=== PATIENT | female | born 1935 | race Caucasian/White ===

== ENCOUNTER 2022-01-11 08:52 | Outpatient (REF) | payer MEDICARE, SELFPAY ==
[2022-01-11 10:26] LABS: Hematocrit 40.2 % (37.0-47.0); Hemoglobin 13.5 g/dl (12.0-16.0); Mean Corpuscular HGB Conc 33.6 g/dl (31.0-35.0); Mean Corpuscular Hemoglobin 29.3 pg (27.0-33.0); Mean Corpuscular Volume 87.2 fL (80.0-98.0); Mean Platelet Volume 11.8 fL (9.4-12.3); Platelet Count 239 X10*3/uL (160-400); Red Blood Count 4.61 X10*6/uL (4.20-5.50); Red Cell Distribution Width 12.4 % (11.0-16.0); White Blood Count 7.2 X10*3/uL (4.8-10.8)
== END 2022-01-11 08:53 | disposition home or self-care (01) ==
LOC: HO.LAB 08:52
PROVIDERS: PCP Physician Assistant; Visit Provider Physician Assistant
DX: Z13.89 Encounter for screening for other disorder (principal)
CPT/HCPCS: 36415; 85027

== ENCOUNTER 2022-11-25 07:53 | Outpatient (REF) | payer MEDICARE, SELFPAY ==
[2022-11-25 08:22] LABS: Hematocrit 40.2 % (37.0-47.0); Hemoglobin 13.6 g/dl (12.0-16.0); Mean Corpuscular HGB Conc 33.8 g/dl (31.0-35.0); Mean Corpuscular Hemoglobin 29.3 pg (27.0-33.0); Mean Corpuscular Volume 86.6 fL (80.0-98.0); Mean Platelet Volume 11.4 fL (9.4-12.3); Platelet Count 267 X10*3/uL (160-400); Red Blood Count 4.64 X10*6/uL (4.20-5.50); Red Cell Distribution Width 12.6 % (11.0-16.0); White Blood Count 7.3 X10*3/uL (4.8-10.8)
[2022-11-25 08:55] LABS: Alanine Aminotransferase 23 U/L (0-31); Albumin Level 4.3 g/dL (3.5-5.0); Alkaline Phosphatase 107 U/L (39-117); Anion Gap 13 (12-20); Aspartate Amino Transferase 18 U/L (5-31); Bilirubin Total 0.6 mg/dL (0.0-1.0); Blood Urea Nitrogen 18 mg/dL (9-16); Calcium 9.3 mg/dL (8.4-10.2); Carbon Dioxide 27 mmol/L (22-29); Chloride 106 mmol/L (96-108); Cholesterol 132 mg/dL; Estimated Glomerular Filt Rate > 60; Glucose Fasting 131 mg/dL (60-99); HDL Cholesterol 41 mg/dL; LDL Cholesterol Calculated 71 mg/dl; Potassium 4.2 mmol/L (3.3-5.1); Sodium 142 mmol/L (135-145); Total Protein 7.3 g/dL (6.5-8.0); Triglycerides 104 mg/dL
[2022-11-25 09:14] LABS: TSH reflex Free T4 0.41 uIU/mL (0.32-4.0)
[2022-11-25 10:49] LABS: Creatinine Urine 64.07 mg/dL; Microalbum/Creatinine Ratio Ur 59.3 ug/mg cr
== END 2022-11-25 07:54 | disposition home or self-care (01) ==
LOC: HO.LAB 07:53
PROVIDERS: PCP Physician Assistant; Visit Provider Physician Assistant
DX: I10 Essential (primary) hypertension (principal)
CPT/HCPCS: 36415; 80053; 80061; 82043; 84443; 85027

== ENCOUNTER 2022-12-20 13:09 | Outpatient (REF) | payer MEDICARE, SELFPAY ==
[2022-12-20 13:59] LABS: Estimated Average Glucose 120 mg/dL; Hemoglobin A1c % 5.8 %
== END 2022-12-20 13:10 | disposition home or self-care (01) ==
LOC: HO.LAB 13:09
PROVIDERS: PCP Physician Assistant; Visit Provider Physician Assistant
DX: R73.01 Impaired fasting glucose (principal)
CPT/HCPCS: 36415; 83036

== ENCOUNTER 2023-03-15 08:26 | Emergency (ER) | payer MEDICARE, SELFPAY ==
--- NOTE | ~2023-03-15 | XR_ITS ---
EXAMINATION: XR CHEST CLINICAL INFORMATION: Chest pain. COMPARISON: 05/05/2019 chest radiographs. TECHNIQUE: 2 views of the chest were obtained. FINDINGS: No significant abnormality is noted involving the heart, lungs, mediastinum, bony thorax or soft tissues. XR/XR chest 2V IMPRESSION: No acute cardiopulmonary process.
[2023-03-15 08:26] VITALS: BP 133/76; PULSE 75; RESP 18; TEMP 36.7; O2SAT 96; BMI 30.1
--- NOTE | 2023-03-15 08:31 | ECG_ITS ---
Test Reason : dizziness Blood Pressure : / mmHG Vent. Rate : 081 BPM Atrial Rate : 081 BPM P-R Int : 134 ms QRS Dur : 072 ms QT Int : 362 ms P-R-T Axes : 010 -19 017 degrees QTc Int : 420 ms Sinus rhythm with Premature atrial complexes Minimal voltage criteria for LVH, may be normal variant ( R in aVL ) Inferior infarct (cited on or before 15-MAR-2023) Anterolateral infarct , age undetermined Abnormal ECG When compared with ECG of 05-MAY-2019 10:01, Premature atrial complexes are now Present Anterior infarct is now Present Anterolateral infarct is now Present Referred By: Generic ED Physician Electronically Signed By:AYSHA HUMPHRIES
[2023-03-15 09:11] VITALS: BP 130/82; PULSE 83; RESP 16; O2SAT 96
--- NOTE | 2023-03-15 09:31 | PC.NURSE ---
pt a&ox3, vss, nsr on the spa manager/esthetician. pt's triage states she is here for dizziness and chest pain but upon speaking w/ pt - main concern is poison tera that resides all over her body. 20gIV placed in the left AC w/o complications. provide bedside speaking with pt. call serna placed within reach. will continue to monitor.
--- NOTE | 2023-03-15 10:07 | PC.NURSE ---
labs drawn and sent to lab.
[2023-03-15 10:08] VITALS: BP 136/112; PULSE 68; RESP 14; TEMP 36.7; O2SAT 96
--- NOTE | 2023-03-15 10:09 | ED_ITS ---
HPI - General Adult General Chief complaint: Dizziness Stated complaint: Not Feeling Well Time Seen by Provider: 03/15/23 09:05 Source: patient Mode of arrival: ambulatory Limitations: no limitations History of Present Illness HPI narrative: 87 yo female with hx of HTN who states since January she has had this pruritic rash and it appears that she has been on prednisone a couple of times with 2 week courses since the start of January she states they are not helping. She is coming in frustrated today and notes she also had some chest pain that was brief at rest and tight last night with mild dyspnea - no symptoms now. Her biggest complaint at this moment is her rash. She has not seen her PCP or water plant operator - patient spends time in her garden states she is not sure if it is poison oak. complaint: rash, chest pain Onset (ago): month(s) (1 month of rash and chest pain last night) Location: chest, left, right, upper extremity and lower extremity Radiation: non-radiation Severity: moderate Quality: other (chest was tight rash is pruritic) Pain Consistency: now resolved Relieving factors: none Exacerbating factors: none Associated symptoms: denies other symptoms Treatments prior to arrival: none Related Data Previous Rx's Medication Instructions Recorded aspirin 81 mg tablet,delayed 81 mg PO DAILY 90 days #90 tabs 12/28/21 release (Adult Aspirin Regimen) amlodipine 10 mg-valsartan 160 mg 1 tab PO DAILY 90 days #90 tabs 11/15/22 tablet hydrocortisone 1 % topical cream 1 appl topical BID PRN itching 03/15/23 #28.35 grams Allergies Allergy/AdvReac Type Severity Reaction Status Date / Time No Known Allergies Allergy Verified 11/15/22 13:42 [No Known Allergies*] Review of Systems Review of Systems: Constitutional : No Fever, No Chills ENT/Mouth : No sore throat, No Rhinorrhea Eyes: No Eye Pain, No Swelling, No Redness Cardiovascular : pos Chest Pain, No SOB Respiratory : No Cough, No Sputum Gastrointestinal : No Nausea, No Vomiting, No Diarrhea, No abdominal Pain Genitourinary : No Dysuria, No Hematuria Musculoskeletal : No joint pain, No Myalgias, No Joint Swelling Skin : No Skin Lesions, positive skin rash Neuro : No Weakness, No Numbness, No Headache Psych : No Anxiety, No Depression Heme/Lymph: No Bruising, No Bleeding,No Lymphadenopathy Endocrine : No Polyuria, No Polydipsia All other systems reviewed and are negative [facility] Past Medical History Attestation statement: The following information was validated with the patient. Medical History Hypotension Surgical History History of throat surgery S/P ear surgery Social History Social History Housing: House Alcohol intake: never Patient Tobacco Use Status: Never used Tobacco Tobacco use type: Cigarette Smoked in Last 30 Days: No e-Cigarette/Vaping Use: Never Used Second Hand Smoke Exposure: No Use of substances other than those prescribed or required for medical reasons: No Advance Directives: No Advance Directives Information Provided: Yes service: No Current occupational status: retired Cognitive needs: No Hearing needs: Yes Vision needs: Yes Physical Exam ED Vital Signs: Vital Signs - 24 hr 03/15/23 08:26 03/15/23 09:11 03/15/23 10:08 Temperature 98.1 F 98.0 F Pulse Rate 75 83 68 Respiratory Rate 18 16 14 Blood Pressure 133/76 130/82 136/112 H Pulse Oximetry 96 96 96 Oxygen Delivery Method Room Air Room Air Room Air 03/15/23 11:17 Temperature Pulse Rate 81 Respiratory Rate 16 Blood Pressure 132/69 Pulse Oximetry 98 Oxygen Delivery Method Room Air BMI result Body Mass Index 30.1 Appearance: Alert. Oriented X3. No acute distress. Eyes: Pupils equal, round and reactive to light. ENT: Pharynx normal. Neck: Normal inspection. Neck supple. CVS: Normal heart rate and rhythm. Pulses normal. Respiratory: No respiratory distress. Breath sounds normal. Abdomen: Soft and non-tender. Skin: Skin warm and dry. Normal skin color. there is a mild rash on arms and abdomen along upper thighs as well that is red raised and appears like a dermatitis - no warmth or edema. Extremities: No lower extremity edema. Neuro: Oriented X 3. No motor deficit. No sensory deficit. Course Course Course Narrative: trop is flat at this time. Reevaluation(s) Reevaluation #1: I spoke to the daughter the patient goes on the steroids but then isn't really compliant and the family cannot get rid of all of the poisonous parsnip and the patient will not stay out of the garden. currently the patient is taking atarax and completed her last steroid course. will not stay out of the garden and is not listening to her daughter. Medications Administered Discontinued Medications Generic Name Dose Route Start Last Admin Trade Name Edson PRN Reason Stop Dose Admin Hydroxyzine HCl 25 mg 03/15/23 11:26 03/15/23 11:33 Hydroxyzine Hcl 25 Mg Tablet PO 03/15/23 11:27 25 mg ONCE ONE Administration Methylprednisolone Sodium Succinate 125 mg 03/15/23 11:34 03/15/23 11:45 Methylprednisolone Sod Succ 125 Mg/2 Ml Vial IVPUSH 03/15/23 11:35 125 mg ONCE ONE Administration Medical Decision Making Medical Decision Making [facility] Narrative: 87 yo female with hx of HTN here with c/o nonspecific eruption that is pruritic and has done at least 20 days of prednisone without relief but has not seen a water plant operator. at this time she has no signs of cellulitis will obtain basic labs and she also c/o atypical chest pain that was brief at rest last night but it has resolved at this time. She has no signs of DVT no hypoxia it was not pleu ritic will obtain EKG and troponin as well as CXR. given her rash she has almost been on prednisone without relief x 1 month - there is no signs of infection I am not entirely sure if she is re exposing herself as she still goes in her garden I am going to call her daughter once her workup is done. Differential Diagnosis Differential Diagnoses: The differential diagnosis associated with the presentation includes dermatitis, nonspecific eruption, atypical chest pain - no hypoxia no signs of DVT not pleuritic PE seems unlikely Admission/Observation Consideration of admission/observation: Escalation of care including admission/observation considered trop flat without rise and EKG no JOVANI. Lab Data [facility] Lab Attestation statement: I reviewed the patient's lab results. 03/15/23 10:07 03/15/23 10:07 Labs: Lab Results 03/15/23 03/15/23 03/15/23 Range/Units 10:07 10:07 10:07 WBC 11.1 H (4.8-10.8) X10*3/uL RBC 4.97 (4.20-5.50) X10*6/uL Hgb 14.7 (12.0-16.0) g/dl Hct 42.6 (37.0-47.0) % MCV 85.7 (80.0-98.0) fL MCH 29.6 (27.0-33.0) pg MCHC 34.5 (31.0-35.0) g/dl RDW 13.2 (11.0-16.0) % Plt Count 246 (160-400) X10*3/uL MPV 11.0 (9.4-12.3) fL Immature Gran % (Auto) 0.8 H (0.0-0.4) % Neut % (Auto) 65.3 (45-73) % Lymph % (Auto) 20.4 (20-40) % [place] % (Auto) 7.4 (2-11) % Eos % (Auto) 5.8 H (0-4) % Baso % (Auto) 0.3 (0-2) % Lymph # (Auto) 2.3 (1.2-4.9) X10*3/uL [place] # (Auto) 0.8 (0.1-1.2) X10*3/uL Eos # (Auto) 0.7 H (0.0-0.4) X10*3/uL Baso # (Auto) 0.0 (0.0-0.2) X10*3/uL Abs Immat Gran (auto) 0.09 H (0.00-0.03) X10*3/uL Absolute Neuts (auto) 7.3 (2.0-8.3) x10*3/uL Absolute Nucleated RBC 0.000 (0.0-0.012) X10*3/uL Nucleated RBC % (auto) 0.0 (0.0-0.2) /100WBC Sodium 142 (135-145) mmol/L Potassium 3.5 (3.3-5.1) mmol/L Chloride 105 (96-108) mmol/L Carbon Dioxide 27 (22-29) mmol/L Anion Gap 14 (12-20) BUN 23 H (9-16) mg/dL Creatinine 1.20 (0.5-1.4) mg/dL Estim Creat Clear Calc 31.8 Estimated GFR 43 Random Glucose 195 H (60-115) mg/dL Calcium 8.8 (8.4-10.2) mg/dL Magnesium 1.7 (1.6-2.6) mg/dL Total Bilirubin 0.6 (0.0-1.0) mg/dL Direct Bilirubin 0.2 (0.0-0.5) mg/dL AST 13 (5-31) U/L ALT 25 (0-31) U/L Alkaline Phosphatase 62 (39-117) U/L Troponin I High Sens 25.9 H (<3.5-17.0) ng/L B-Natriuretic Peptide (<100) pg/mL Total Protein 6.1 L (6.5-8.0) g/dL Albumin 3.7 (3.5-5.0) g/dL COVID-19 (TANNA) (Negative) COVID-19 Clin Com 03/15/23 03/15/23 03/15/23 Range/Units 10:07 10:07 10:59 WBC (4.8-10.8) X10*3/uL RBC (4.20-5.50) X10*6/uL Hgb (12.0-16.0) g/dl Hct (37.0-47.0) % MCV (80.0-98.0) fL MCH (27.0-33.0) pg MCHC (31.0-35.0) g/dl RDW (11.0-16.0) % Plt Count (160-400) X10*3/uL MPV (9.4-12.3) fL Immature Gran % (Auto) (0.0-0.4) % Neut % (Auto) (45-73) % Lymph % (Auto) (20-40) % [place] % (Auto) (2-11) % Eos % (Auto) (0-4) % Baso % (Auto) (0-2) % Lymph # (Auto) (1.2-4.9) X10*3/uL [place] # (Auto) (0.1-1.2) X10*3/uL Eos # (Auto) (0.0-0.4) X10*3/uL Baso # (Auto) (0.0-0.2) X10*3/uL Abs Immat Gran (auto) (0.00-0.03) X10*3/uL Absolute Neuts (auto) (2.0-8.3) x10*3/uL Absolute Nucleated RBC (0.0-0.012) X10*3/uL Nucleated RBC % (auto) (0.0-0.2) /100WBC Sodium (135-145) mmol/L Potassium (3.3-5.1) mmol/L Chloride (96-108) mmol/L Carbon Dioxide (22-29) mmol/L Anion Gap (12-20) BUN (9-16) mg/dL Creatinine (0.5-1.4) mg/dL Estim Creat Clear Calc Estimated GFR Random Glucose (60-115) mg/dL Calcium (8.4-10.2) mg/dL Magnesium (1.6-2.6) mg/dL Total Bilirubin (0.0-1.0) mg/dL Direct Bilirubin (0.0-0.5) mg/dL AST (5-31) U/L ALT (0-31) U/L Alkaline Phosphatase (39-117) U/L Troponin I High Sens 25.1 H (<3.5-17.0) ng/L B-Natriuretic Peptide 28 (<100) pg/mL Total Protein (6.5-8.0) g/dL Albumin (3.5-5.0) g/dL COVID-19 (TANNA) Negative (Negative) COVID-19 Clin Com See Note Independent Interpretation I performed an independent interpretation of an: EKG and Plain X-Ray Interpretation: Rate: 81 Rhythm: NSR [place]: left Normal P waves. Normal CJ. Normal QRS complex. poor R wave progression ST T wave : no JOVANI, inverted T wave III qTC: normal prior studies: R wave progression is new The study has been interpreted contemporaneously by me. . Radiology Impression Discussion of test interpretation with radiology: I have reviewed the radiolo gist's reading. Independent Historian Clinical information obtained from an independent historian. History obtained from or confirmed by: Other (daughter) External Record Review External record reviewed: Outpatient record Prescription Management I considered prescription management with: Other Discharge Plan Discharge Clinical Impression: Contact dermatitis, Atypical chest pain Patient Disposition: Home, Self-Care Instructions: Chest Pain (ED), Contact Dermatitis (ED) Additional Instructions: you were given a shot of steroids in the ED. you have to avoid the sun and the plants please stop going into yard until the yard is cleaned and treated. you can take atarax for itching. I am going to start you on a cream as well. your EKG showed likely an old heart attack in the past please call the data support analyst for an outpatient stress test and talk to your doctor about this - call in the nex tweek. return for fevers, return of chest pain, dizziness, faitning, increased trouble breathing or any other concerns. Prescriptions: New hydrocortisone 1 % cream 1 appl topical BID PRN (Reason: itching) Qty: 28.35 0RF Rx Instructions: for 2 weeks No Action aspirin [Adult Aspirin Regimen] 81 mg tablet,delayed release (DR/EC) 81 mg PO DAILY 90 Days Qty: 90 1RF amlodipine-valsartan 10-160 mg tablet 1 tab PO DAILY 90 Days Qty: 90 2RF Referrals: Damion Hoover MD [Physician] - (talk to your doctor about referral for stress test)
--- NOTE | 2023-03-15 10:11 | PC.NURSE ---
x-ray bedside transporting pt.
--- NOTE | 2023-03-15 10:11 | PC.NURSE ---
labs/covid sent, pt to xray.
[2023-03-15 10:23] LABS: MANUAL DIFF FLAG NO
[2023-03-15 10:24] LABS: Basophils Percent Auto 0.3 % (0-2); Eosinophils Absolute Auto 0.7 X10*3/uL (0.0-0.4); Eosinophils Percent Auto 5.8 % (0-4); Hematocrit 42.6 % (37.0-47.0); Hemoglobin 14.7 g/dl (12.0-16.0); Imm Gran Abs Auto 0.09 X10*3/uL (0.00-0.03); Imm Gran Pct Auto 0.8 % (0.0-0.4); Lymphocytes Absolute Auto 2.3 X10*3/uL (1.2-4.9); Lymphocytes Percent Auto 20.4 % (20-40); Mean Corpuscular HGB Conc 34.5 g/dl (31.0-35.0); Mean Corpuscular Hemoglobin 29.6 pg (27.0-33.0); Mean Corpuscular Volume 85.7 fL (80.0-98.0); Monocytes Absolute Auto 0.8 X10*3/uL (0.1-1.2); Monocytes Percent Auto 7.4 % (2-11); Neutrophils Absolute Auto 7.3 x10*3/uL (2.0-8.3); Neutrophils Percent Auto 65.3 % (45-73); Platelet Count 246 X10*3/uL (160-400); Red Blood Count 4.97 X10*6/uL (4.20-5.50); Red Cell Distribution Width 13.2 % (11.0-16.0); White Blood Count 11.1 X10*3/uL (4.8-10.8)
[2023-03-15 10:34] LABS: COVID-19 Test Negative (Negative)
[2023-03-15 10:41] LABS: Alanine Aminotransferase 25 U/L (0-31); Albumin Level 3.7 g/dL (3.5-5.0); Alkaline Phosphatase 62 U/L (39-117); Anion Gap 14 (12-20); Aspartate Amino Transferase 13 U/L (5-31); Bilirubin Direct 0.2 mg/dL (0.0-0.5); Bilirubin Total 0.6 mg/dL (0.0-1.0); Blood Urea Nitrogen 23 mg/dL (9-16); Calcium 8.8 mg/dL (8.4-10.2); Carbon Dioxide 27 mmol/L (22-29); Chloride 105 mmol/L (96-108); Creatinine Clr Calc Pharmacy 31.8; Estimated Glomerular Filt Rate 43; Glucose Random 195 mg/dL (60-115); Magnesium 1.7 mg/dL (1.6-2.6); Potassium 3.5 mmol/L (3.3-5.1); Sodium 142 mmol/L (135-145); Total Protein 6.1 g/dL (6.5-8.0)
[2023-03-15 10:44] LABS: B Type Natriuretic Peptide 28 pg/mL (<100)
[2023-03-15 10:49] LABS: Troponin-I High Sensitivity 25.9 ng/L (<3.5-17.0)
--- NOTE | 2023-03-15 11:00 | PC.NURSE ---
[employer] drawing labs and sending over.
[2023-03-15 11:17] VITALS: BP 132/69; PULSE 81; RESP 16; O2SAT 98
--- NOTE | 2023-03-15 11:18 | PC.NURSE ---
pt a&ox3, vss, nsr on the gambling monitor - occasional PVC's present on monitor. pt resting comfortably in no apparent distress. pt verbalizing 0/10 pain but extreme itchiness from poison tera. call serna placed within reach.
[2023-03-15 11:24] LABS: Troponin-I High Sensitivity 25.1 ng/L (<3.5-17.0)
[2023-03-15] MEDS: hydrOXYzine HCL 25 MG TABLET PO (11:33)
--- NOTE | 2023-03-15 11:34 | PC.NURSE ---
medication administered per provider order. pharmacy called and notified that pt need cortizone cream - will apply topically when able.
--- NOTE | 2023-03-15 11:36 | PC.NURSE ---
resting in bed. VSS. md ordering cream for pt report of poison tera to hands/arms- skin is otherwise intact with +CSM and good pallor. denies dizziness/chest pain/SOB/abd. pain. calm, cooperative. no respiratory distress. passed swallow eval w/o issue. no focal deficits. piv remains c/d/i.
[2023-03-15] MEDS: methylPREDNISolone Sod Succ 125 MG/2 ML VIAL IVPUSH (11:45)
--- NOTE | 2023-03-15 11:48 | PC.NURSE ---
medication administered per provider order. provider bedside.
--- NOTE | 2023-03-15 12:12 | PC.NURSE ---
discharge delayed d/t pt not receiving cortizone cream from pharmacy. will administer and discharge when medication is recieved.
[2023-03-15 12:48] VITALS: BP 114/58; PULSE 92; RESP 16; TEMP 36.3; O2SAT 98
[2023-03-15] MEDS: Hydrocortisone 1 % Cream 28.35 GM TUBE 1 APPL TOPICAL (12:51)
--- NOTE | 2023-03-15 13:01 | PC.NURSE ---
hydrocortisone applied per pt report itching r/t pt report poison tera to . daughter called- removed piv- dressed/changed. pt aox4. calm, coop. VSS. being d/c instructions now
--- NOTE | 2023-03-15 13:02 | PC.NURSE ---
pt provided with discharge instructions. pt's daughter called/notified that pt is ready for discharge.
== END 2023-03-15 13:10 | disposition home or self-care (01) ==
PROVIDERS: Emergency Provider Emergency Medicine; PCP Physician Assistant
DX: L25.9 Unspecified contact dermatitis, unspecified cause (principal); R07.89 Other chest pain; R06.02 Shortness of breath; Z20.822 Contact with and (suspected) exposure to COVID-19; Z20.828 Contact with and (suspected) exposure to other viral communicable diseases; Z79.899 Other long term (current) drug therapy
CPT/HCPCS: 36415; 71046; 80048; 80076; 83735; 83880; 84484; 85025; 87635; 93005; 99285; J2930

== ENCOUNTER 2023-03-31 09:02 | Outpatient (AMB) | payer MEDICARE, SELFPAY ==
--- NOTE | 2023-03-31 09:36 | A.OFFPC_ITS ---
Vital Signs 03/31/23 09:38 Height 5 ft 2 in Weight 163 lb BMI 29.8 BP 118/56 L Blood Pressure Location Lt brachial Position Sitting Pulse 75 Pulse Source Pulse Oximeter Pulse Oximetry (%) 98 Oxygen Delivery Method Room Air Intake Visit Reasons: skin rash Intake Note: pt is here for staph infection all over her body. Pt has been experiencing the itchiness for about 5-6 weeks. Medical Records Specialist Required: No Accompanied by: Self / Same As Patient Allergies No Known Allergies [No Known Allergies*] Allergy (Verified 03/31/23 09:44) Tobacco use date assessed: 11/15/22 Fall risk assessment: No Falls in past year Last assessed Fall Risk: 03/31/23 Dental Screening Dental Screen Date: 03/31/23 Did you have a dental visit in the last 12 months?: No Did you have a dental problem in the last 6 months where you did not have access to dental care?: No Was dental information given to patient?: No HPI HPI Comments History of Present Illness Details 87- year old female H significant for HTN and obesity. Patient of Eugenio SAMS, patient presents today for rash all over her body. Patient has been to the ER multiple times for this and has been told its poision tera related to gardening. Patient has been on prednisone multiple times for this over the last month and is on atarax for the itch. Patient daughter to re-occurences of rash and does not feel its related to gardening. Patient reports today with wide spread puritic rash on bilateral upper, lower extremities, trunk. Patient has noted open areas to bilateral fingers and hands from scratching. No signs of infection or drainage noted. Patient denied any fevers or chills. Patient reports she continues to garden. Denies any new lotions, creams, products or detergents. [facility] Medical History (Updated 03/31/23 @ 10:06 by JACOBO Smart) Contact dermatitis Hypotension Surgical History History of throat surgery S/P ear surgery Social History Housing: House Alcohol intake: never Patient Tobacco Use Status: Never used Tobacco Tobacco use type: Cigarette e-Cigarette/Vaping Use: Never Used Second Hand Smoke Exposure: No service: No Current occupational status: retired Cognitive needs: No Hearing needs: Yes Vision needs: Yes Questionnaire Thrive Questionnaire Date Thrive assessed: 11/15/22 JILLIAN-7 AMB Questionnaire JILLIAN-7 Date JILLIAN - 7 assessed: 11/15/22 Source: Developed by Drs. Leo Strange, Romy Choudhary, Ren Fatima and colleagues, with an educational yamileth from [employer]. Review of Systems Const Denies chills, Denies fatigue, Denies fever(s) and Denies poor appetite Eyes Denies no additional complaints ENT Reports Normal hearing present Card Denies chest pain, Denies syncope, Denies rapid heart rate and Denies dyspnea Resp Denies cough and Denies dyspnea GI Denies change in stool character, Denies constipation, Denies diarrhea, Denies nausea and Denies vomiting Denies urinary frequency, Denies dysuria and Denies urinary urgency Skin/Breast Reports rash Neuro Reports Normal hearing present, Denies confusion and Denies syncope Psych Denies confusion Endo Denies fatigue Physical exam (Primary Care) Vital Signs: Last Vital Signs Pulse 75 03/31/23 09:38 BP 118/56 L 03/31/23 09:38 Pulse Ox 98 03/31/23 09:38 Oxygen Delivery Method Room Air 03/31/23 09:38 BMI result Body Mass Index 29.8 Tobacco/Smoking Status: Tobacco use Status Tobacco use date assessed 11/15/22 03/31/23 09:38 Patient Tobacco Use Status Never used Tobacco 03/31/23 09:38 Tobacco use type Cigarette 03/31/23 09:38 e-Cigarette/Vaping Use Never Used 03/31/23 09:38 Thrive Assessment: Date of Thrive Assessment Date Thrive assessed 11/15/22 03/31/23 09:38 Const General: No confusion Orientation/consciousness: No confusion HENMT Head: Yes normocephalic and Yes atraumatic Eyes Conjunctivae: conjunctivae normal Chest Chest palpation & inspection: normal inspection of the chest Resp Effort & Inspection: normal respiratory effort Auscultation: clear to auscultation bilaterally, no crackles, no rhonchi and no wheezes Cardio Rate: regular rate Rhythm: regular rhythm Heart sounds: S1 normal heart sound present and S2 normal heart sound present GI Inspection: Yes normal to inspection General: Yes no CVA tenderness Back/Spine/Pelvis Back: no CVA tenderness Skin Other: Widespread multi uniform pruritic erythematous rash noted on bilateral upper and lower extremities, trunk and back. Patient has noted circular open areas to fingers and palm of right hand, patient reports scratching. Neuro General: No confusion Cranial nerves: Yes Normal hearing present Extrem General: No edema Assessment and Plan Assessment & Plan (1) Contact dermatitis: Code(s): L25.9 - Unspecified contact dermatitis, unspecified cause Qualifiers: Contact dermatitis type: unspecified Plan: Will prescribe prednisone taper, urgent referral sent to dermatology. (2) HTN (hypertension): Code(s): I10 - Essential (primary) hypertension Qualifiers: Hypertension type: essential hypertension Qualified Code(s): I10 - Essential (primary) hypertension Plan: Continue on amlodipine-valsartan 10-160mg daily. Follow low salt diet and excercise. Plan Keep scheduled follow-up with PCP or follow-up sooner needed. Orders: Referrals Dermatology Referral L25.9 - Unspecified contact dermatitis, unspecified cause Medications: New hydroxyzine HCl 10 mg PO TID PRN 20 tabs 0RF itching L25.9 - Unspecified conta ct dermatitis, unspecified cause prednisone Take 6 tablets for 3 days then, Take 5 tablets for 3 days then, take 4 take for tablets for 3 days then, take 3 tablets for 3 days then, 2 tablets for 3 days then, take 1 tablet 3 days then stop. 10 mg PO DIRECTED 63 tabs 0RF Coding Level of Care Code Est Pt Level 3 (02933) Diagnoses Contact dermatitis L25.9 Contact dermatitis type: unspecified HTN (hypertension) I10 Hypertension type: essential hypertension
[2023-03-31 09:38] VITALS: BP 118/56; PULSE 75; O2SAT 98; BMI 29.8
== END 2023-03-31 10:10 | disposition home or self-care (01) ==
PROVIDERS: PCP Physician Assistant; Visit Provider Nurse Practitioner Family
DX: L25.9 Unspecified contact dermatitis, unspecified cause (principal); I10 Essential (primary) hypertension
CPT/HCPCS: 99213